=== PATIENT | male | born 1980 ===

== ENCOUNTER 2022-03-21 13:40 | Inpatient (IN) | payer OTHER, SELFPAY ==
[2022-03-21 14:06] VITALS: BMI 17.3
[2022-03-21 14:08] VITALS: BP 130/84; PULSE 90; RESP 16; TEMP 36.7; O2SAT 96
[2022-03-21] MEDS: OLANZapine 5 mg ODT PO (14:30)
--- NOTE | 2022-03-21 14:30 | PC.NURSE ---
Addendum entered by Judith Cowan LPN 03/21/22 16:51: prn med somewhat effective, pt states I'm not sure if it helped Original Note: PRN ZYPREXA ZYDIS 5 MG GIVEN PO PER PT C/O ANXIETY/AGITATION. NEW ADMIT, UPSET ABOUT BEING HERE. TOOK PRN MED WILLINGLY. WILL CONT TO MONITOR
--- NOTE | 2022-03-21 14:47 | PC.ADMIT ---
[address] [facility] Admission Note: The patient,Chema Heath,41 y/o, was given written information regarding hospital policies, unit procedures and contact persons. Patient's smoking status: . Vital Signs - 8 hr 03/21/22 14:08 Temperature 98.0 F Pulse Rate 90 Respiratory Rate 16 Blood Pressure 130/84 Pulse Oximetry 96 ADMITTED FROM [facility]ULANCE AT 1337. PT DOES COME WITH 2 AFFIDAVITS STATING HE WANTS TO CUT WRIST, JUMP OUT OF WINDOW, JUMP OUT IN FRONT OF TRAFFIC AND HANG HIMSELF. PT HAS PAST SUICIDE ATTEMPTS OF JUMPING OUT IN FRONT OF TRAFFIC AND HANGING HIM SELF. UPON ADMISSION PT WOULD NOT SIGN CONSENT TO TREAT. EDUCATION PROVIDED AND INFORMED OF AFFIDAVITS AND THAT THE DR. WOULD HAVE TO 96 HIM IF HE REFUSES TO SIGN THE CONSENT TO TREAT. AFTER SEVERAL MINUTES PT DID DECIDE TO SIGN HIMSELF IN VOLUNTARILY. PT CURRENTLY DENIES SI/HI BUT DOES ENDORSE AVH'S. PT DOES NOT TAKE ANY HOME MEDS AND HAS NO KNOWN DRUG ALLERGIES. PT STATES HE HAS A MEDICAL MARIJUANA CARD BUT IT IS RUNNING OUT AND HAS NOT SMOKED IN A WEEK. PT STATES HE IS HERE DUE TO INCREASED DEPRESSION AND ANXIETY. PT REPORTS HE WAS LOCKED UP FOR 4 YEARS AND HE IS HAVING TROUBLE ADJUSTING TO BE OUT DUE TO EVERYTHING BEING SO DIFFEERENT NOW. STATES HE HAS A AND MOTHER WHO ARE SUPPORTIVE. ORIENTATED TO UNIT. AFTER ASSESSMENT COMPLETED PT DID RECEIVE ZYDIS 5 MG ORDERED. ALL QUESTIONS ANSWERED AND SUPPORT VOICED.
[2022-03-21 20:12] VITALS: BP 119/82; PULSE 78; RESP 17; TEMP 36.6; O2SAT 99
[2022-03-22 06:00] VITALS: BP 133/85; PULSE 97; RESP 16; TEMP 36.9; O2SAT 97
[2022-03-22] MEDS: folic acid 1 mg Tablet PO (08:19)
[2022-03-22] MEDS: thiamine 100 mg Tablet PO (08:19)
[2022-03-22] MEDS: multivitamin therapeutic Tablet 1 TAB PO (08:19)
[2022-03-22 14:00] VITALS: BP 118/78; PULSE 82; RESP 18; TEMP 36.8; O2SAT 97
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
[2022-03-22 20:03] VITALS: BP 107/71; PULSE 104; RESP 18; TEMP 36.9; O2SAT 98
[2022-03-22] MEDS: risperiDONE 2 mg Tablet PO (20:27)
[2022-03-23 06:00] VITALS: BP 113/78; PULSE 110; RESP 16; TEMP 36.8; O2SAT 99
[2022-03-23] MEDS: folic acid 1 mg Tablet PO (10:38)
[2022-03-23] MEDS: escitalopram 10 mg Tablet PO (10:38)
[2022-03-23] MEDS: thiamine 100 mg Tablet PO (10:38)
[2022-03-23] MEDS: multivitamin therapeutic Tablet 1 TAB PO (10:38)
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
[2022-03-23 14:00] VITALS: BP 122/86; PULSE 118; RESP 20; TEMP 36.7; O2SAT 96
[2022-03-23 15:59] VITALS: BP 113/78; PULSE 110; RESP 16; TEMP 36.8; O2SAT 99
== END 2022-03-23 17:23 | disposition home or self-care (01) | DRG 885 ==
PROVIDERS: Admitting Provider Psychiatry & Neurology Psychiatry; Visit Provider Psychiatry & Neurology Psychiatry
DX: F20.9 Schizophrenia, unspecified (principal); R45.851 Suicidal ideations; F43.10 Post-traumatic stress disorder, unspecified; F15.10 Other stimulant abuse, uncomplicated; F12.10 Cannabis abuse, uncomplicated; Z91.51 Personal history of suicidal behavior; Z81.1 Family history of alcohol abuse and dependence
CPT/HCPCS: 97150; 97165